=== PATIENT | female | born 1995 | race Caucasian/White ===

== ENCOUNTER 2023-12-26 13:55 | Emergency (ER) | payer OTHER, SELFPAY ==
[2023-12-26 13:57] VITALS: BP 120/75; PULSE 94; RESP 14; TEMP 36.9; O2SAT 95; BMI 27.4
--- NOTE | 2023-12-26 13:57 | ED_ITS ---
HPI - General Adult General Chief complaint: Dizziness Stated complaint: dizziness, headaches Time Seen by Provider: 12/26/23 15:29 Source: patient Mode of arrival: ambulatory Limitations: no limitations History of Present Illness ED Provider: Dr Cohen HPI narrative: Patient is feeling weak and dizzy for the past few weeks. She has a history of anemia and is new to the area and does not have a doctor. She denies fever and . Onset (ago): month(s) Related Data Allergies Allergy/AdvReac Type Severity Reaction Status Date / Time aspirin Allergy Swelling Verified 12/26/23 13:59 Review of Systems 2 Review of Systems: Yes all other systems are reviewed and are negative Neurologic: Denies Sensory deficit (Neuro) [facility] Social History Social History Smoked in Last 30 Days: No Use of substances other than those prescribed or required for medical reasons: No Advance Directives: No Advance Directives Information Provided: No Do you have a plan to hurt others: No Plan Physical Exam ED Vital Signs: Vital Signs - 24 hr 12/26/23 13:57 12/26/23 16:06 Temperature 98.4 F 98.3 F Pulse Rate 94 75 Respiratory Rate 14 18 Blood Pressure 120/75 103/56 L Pulse Oximetry 95 99 Oxygen Delivery Method Room Air BMI result Body Mass Index 27.4 Const General: healthy appearing Nutritional Appearance: average body habitus Orientation/consciousness: oriented to person and patient oriented x3 Limitations: no limitations HENMT Head: Yes normal to inspection Ears: external ears normal General nose exam: Normal external nose present Mouth: Normal oral and palatal mucosa present and oropharynx normal Throat: Yes posterior oropharynx normal Eyes General: appearance normal, both eyes and all related structures Neck Neck: Yes normal visual inspection Chest Chest palpation & inspection: normal inspection of the chest Resp Auscultation: clear to auscultation bilaterally Cardio Jugular venous distension: no JVD Rate: regular rate Rhythm: regular rhythm Heart sounds: S1 normal heart sound present and S2 normal heart sound present GI Inspection: Yes normal to inspection Palpation (GI): Soft to palpation, nontender and No hepatosplenomegaly present Auscultation: normal bowel sounds General: Yes no CVA tenderness Back/Spine/Pelvis Back: no CVA tenderness Skin General skin exam: no rashes or lesions noted Neuro General: oriented to person and patient oriented x3 Cranial nerves: Yes CN's II-XII intact bilaterally Motor exam (neuro): 5/5 motor strength present throughout Sensory Exam: No Sensory deficit (Neuro) Extrem General: Yes normal to inspection Psych Appearance: grossly normal Course Course Course Narrative: This is a rapid medical exam performed by Spencer Cancino NP: Additional HPI, ROS, PE not included below will be deferred to primary provider. Patient is a 28-year-old female with history of anemia presenting to the ED with 3 days of headache, dizziness/lightheadedness, and fatigue. Went to urgent care yesterday but was told there was nothing they could check there. Plan: labs, UA Reevaluation(s) Reevaluation #1: Patient is well appearing labs normal have discussed her results Time: 16:59 Medical Decision Making Differential Diagnosis Differential Diagnoses: The differential diagnosis associated with the presentation includes (anemia, electrolyte abnormality, UTI, covid) Admission/Observation Consideration of admission/observation: Escalation of care including admission/observation considered (upon arrival admission was considered) Lab Data 12/26/23 14:17 12/26/23 14:17 Labs: Lab Results 12/26/23 12/26/23 Range/Units 14:17 16:10 WBC 12.2 H (4.8-10.8) X10*3/uL RBC 4.26 (4.20-5.50) X10*6/uL Hgb 13.1 (12.0-16.0) g/dl Hct 38.4 (37.0-47.0) % MCV 90.1 (80.0-98.0) fL MCH 30.8 (27.0-33.0) pg MCHC 34.1 (31.0-35.0) g/dl RDW 12.8 (11.0-16.0) % Plt Count 244 (160-400) X10*3/uL MPV 10.4 (9.4-12.3) fL Immature Gran % (Auto) 0.4 (0.0-0.4) % Neut % (Auto) 69.7 (45-73) % Lymph % (Auto) 22.8 (20-40) % Addison % (Auto) 6.1 (2-11) % Eos % (Auto) 0.5 (0-4) % Baso % (Auto) 0.5 (0-2) % Lymph # (Auto) 2.8 (1.2-4.9) X10*3/uL Addison # (Auto) 0.8 (0.1-1.2) X10*3/uL Eos # (Auto) 0.1 (0.0-0.4) X10*3/uL Baso # (Auto) 0.1 (0.0-0.2) X10*3/uL Abs Immat Gran (auto) 0.05 H (0.00-0.03) X10*3/uL Absolute Neuts (auto) 8.5 H (2.0-8.3) x10*3/uL Absolute Nucleated RBC 0.000 (0.0-0.012) X10*3/uL Nucleated RBC % (auto) 0.0 (0.0-0.2) /100WBC Sodium 139 (135-145) mmol/L Potassium 3.7 (3.3-5.1) mmol/L Chloride 105 (96-108) mmol/L Carbon Dioxide 24 (22-29) mmol/L Anion Gap 14 (12-20) BUN 9 (9-16) mg/dL Creatinine 0.67 (0.5-1.4) mg/dL Estim Creat Clear Calc 108.5 Estimated GFR > 60 Random Glucose 127 H (60-115) mg/dL Calcium 9.1 (8.4-10.2) mg/dL Total Bilirubin 0.2 (0.0-1.0) mg/dL AST 16 (5-31) U/L ALT 14 (0-31) U/L Alkaline Phosphatase 89 (39-117) U/L Total Protein 7.7 (6.5-8.0) g/dL Albumin 4.4 (3.5-5.0) g/dL Beta HCG, Quant < 2 mIU/mL Urine Color Yellow Urine Appearance Clear Urine pH 6.5 (5.0-9.0) Ur Specific [place] 1.020 (1.005-1.025) Urine Protein Negative (Neg-Trace) mg/dL Urine Glucose (UA) Negative (Negative) mg/dL Urine Ketones Negative (Negative) mg/dL Urine Blood Negative (Negative) Urine Nitrite Negative (Negative) Ur Leukocyte Esterase Trace H (Negative) Urine RBC 0-2 (0-2) /HPF Urine WBC 0-5 (0-5) /HPF Ur Squamous Epith Cells 3-5 (0-2) /HPF Urine Bacteria Trace (None Seen) Hyaline Casts 0-2 (0-2) /LPF Influenza Type A (PCR) NEGATIVE (Negative) Influenza Type B (PCR) NEGATIVE (Negative) RSV RNA Qual (PCR) NEGATIVE (Negative) SARS-CoV-2 RNA (RT-PCR) NEGATIVE (Negative) Prescription Management I considered prescription management with: Antibiotic (no evidence of UTI so will not start abx) Discharge Plan Discharge Clinical Impression: Weakness Patient Disposition: Home, Self-Care Instructions: Weakness (ED) Print Language: [place]
[2023-12-26 14:21] LABS: MANUAL DIFF FLAG NO
[2023-12-26 14:22] LABS: Basophils Absolute Auto 0.1 X10*3/uL (0.0-0.2); Basophils Percent Auto 0.5 % (0-2); Eosinophils Absolute Auto 0.1 X10*3/uL (0.0-0.4); Eosinophils Percent Auto 0.5 % (0-4); Hematocrit 38.4 % (37.0-47.0); Hemoglobin 13.1 g/dl (12.0-16.0); Imm Gran Abs Auto 0.05 X10*3/uL (0.00-0.03); Imm Gran Pct Auto 0.4 % (0.0-0.4); Lymphocytes Absolute Auto 2.8 X10*3/uL (1.2-4.9); Lymphocytes Percent Auto 22.8 % (20-40); Mean Corpuscular HGB Conc 34.1 g/dl (31.0-35.0); Mean Corpuscular Hemoglobin 30.8 pg (27.0-33.0); Mean Corpuscular Volume 90.1 fL (80.0-98.0); Mean Platelet Volume 10.4 fL (9.4-12.3); Monocytes Absolute Auto 0.8 X10*3/uL (0.1-1.2); Monocytes Percent Auto 6.1 % (2-11); Neutrophils Absolute Auto 8.5 x10*3/uL (2.0-8.3); Neutrophils Percent Auto 69.7 % (45-73); Platelet Count 244 X10*3/uL (160-400); Red Blood Count 4.26 X10*6/uL (4.20-5.50); Red Cell Distribution Width 12.8 % (11.0-16.0); White Blood Count 12.2 X10*3/uL (4.8-10.8)
[2023-12-26 14:46] LABS: Alanine Aminotransferase 14 U/L (0-31); Albumin Level 4.4 g/dL (3.5-5.0); Alkaline Phosphatase 89 U/L (39-117); Anion Gap 14 (12-20); Aspartate Amino Transferase 16 U/L (5-31); Bilirubin Total 0.2 mg/dL (0.0-1.0); Blood Urea Nitrogen 9 mg/dL (9-16); Calcium 9.1 mg/dL (8.4-10.2); Carbon Dioxide 24 mmol/L (22-29); Chloride 105 mmol/L (96-108); Creatinine Clr Calc Pharmacy 108.5; Estimated Glomerular Filt Rate > 60; Glucose Random 127 mg/dL (60-115); Potassium 3.7 mmol/L (3.3-5.1); Sodium 139 mmol/L (135-145); Total Protein 7.7 g/dL (6.5-8.0)
[2023-12-26 14:52] LABS: HCG Quantitative < 2 mIU/mL
[2023-12-26 15:00] LABS: Influenza A PCR NEGATIVE (Negative); Influenza B PCR NEGATIVE (Negative); Resp Syncy Virus RNA Qual PCR NEGATIVE (Negative); SARS COV2 PCR INHOUSE NEGATIVE (Negative)
[2023-12-26 16:06] VITALS: BP 103/56; PULSE 75; RESP 18; TEMP 36.8; O2SAT 99
[2023-12-26 16:31] LABS: Appearance Urine Clear; Color Urine Yellow; Glucose Urine UA Negative (Negative); Leukocyte Esterase Urine Trace (Negative); Nitrite Urine Negative (Negative); PH 6.5 (5.0-9.0); UMIC TRIGGER UACC YES; Urine Blood Negative (Negative); Urine Ketones Negative (Negative); Urine Protein Negative (Neg-Trace)
[2023-12-26 16:44] LABS: Bacteria Urine Trace (None Seen); Hyaline Casts Urine 0-2 /LPF (0-2); RBC Urine 0-2 /HPF (0-2); WBC Urine 0-5 /HPF (0-5)
[2023-12-26 17:19] VITALS: BP 103/56; PULSE 75; RESP 18; TEMP 36.8; O2SAT 99
== END 2023-12-26 17:21 | disposition home or self-care (01) ==
PROVIDERS: Registered Nurse Emergency; Emergency Provider Emergency Medicine
DX: R42 Dizziness and giddiness (principal); R53.1 Weakness; Z03.818 Encounter for observation for suspected exposure to other biological agents ruled out; Z79.899 Other long term (current) drug therapy
CPT/HCPCS: 0241U; 80053; 81001; 84702; 85025; 99283; 99284

== ENCOUNTER 2025-02-26 10:00 | Outpatient (AMB) | payer OTHER, SELFPAY ==
--- NOTE | 2025-02-26 10:09 | A.OFFPC_ITS ---
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 Intake Note: New patient to establish care. 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 HPI Details New Patient? ?? Prior PCP:? CT Dr Last office visit/CPE:? > 1 yr Acute issue(s):? ?? PMHx:?Headaches/Migraines. Anemia SurgHx:? BBL . C-sect x 3. FHx:? Mom: DM, HTN. Dad: Unknown. Aunt: Breast CA. mGM: DM, HTN, HLD, Thyroid SocHx:? Nonsmoker. EtOH 1 drink 1-2 x a month. No drugs PFSH Medical History (Updated 02/26/25 @ 10:27 by Bladimir Kaufman) Bipolar 1 disorder Headache Eczema Surgical History (Updated 02/26/25 @ 10:18 by Jose Villafana MA) H/O plastic surgery Previous section Family History (Updated 02/26/25 @ 10:21 by Jose Villafana MA) Mother Diabetes Maternal Grandmother Diabetes Asthma High cholesterol Thyroid disorder Paternal Grandfather Diabetes Thyroid disorder Paternal Grandmother Diabetes High cholesterol Sister Asthma Brother Asthma Social History (Updated 02/26/25 @ 10:10 by Jose Villafana MA) Housing: Apartment Alcohol intake: current Alcohol intake frequency: a few times a month Patient Tobacco Use Status: Never used Tobacco e-Cigarette/Vaping Use: Never Used Second Hand Smoke Exposure: No Current occupational status: employed 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 1. Little interest or pleasure in doing things: not at all 2. Feeling down, depressed, or hopeless: not at all 3. Trouble falling or staying asleep, or sleeping too much: not at all 4. Feeling tired or having little energy: several days 5. Poor appetite or overeating: not at all 6. Feeling bad about yourself - or that you are a failure or have let yourself or your family down: not at all 7. Trouble concentrating on things, such as reading the newspaper or watching television: not at all 8. Moving or speaking so slowly that other people could have noticed. Or the opposite - being so fidgety or restless that you have been moving around a lot more than usual: not at all 9. Thoughts that you would be better off or of hurting yourself in some way: not at all Total score: 1 Depression Screening Interpretation: Negative Depression Screening Done: Yes 39526 - PHQ-9 Billing: Yes Source: Developed by Drs. Drake Cade, Ale Lindo, Felix Carrasco and colleagues, with an educational migdalia from [employer]. Thrive Questionnaire Date Thrive assessed: 02/26/25 I am a: Patient What is your living situation today?: I have a steady place to live Within the past 12 months, did the food you bought not last and you didn't have the money to get more?: Never true Within the past 12 months, did you worry whether your food would run out before you got money to buy more?: Never true Do you have trouble paying for medicines?: No Do you have trouble getting transportation to medical appointments?: No Do you have trouble paying your heating and electricity bill?: No Do you have trouble taking care of your child, family member or friend?: No Do you have trouble with day-to-day activities such as bathing, preparing meals, shopping, managing finances, etc.?: No Are you currently unemployed and looking for a job?: Yes Are you interested in more education?: No Please select the resources that you would like help with: Housing/Intermediate Currently or been in a relationship where the following occur: No concerns reported THRIVE Score: 0 AUDIT C Alcohol Use Questionnaire (AUDIT-C) 1. How often do you have a drink containing alcohol?: 2-4 times a month 2. How many drinks containing alcohol do you have on a typical day when you are drinking?: 1 or 2 3. How often do you have six or more drinks on one occasion?: Never Total Score: 2 TRESSA-7 AMB Questionnaire TRESSA-7 Date TRESSA - 7 assessed: 02/26/25 Feeling nervous, anxious, or on edge: 0 = Not at all Not being able to stop or control worryin = Not at all Worrying too much about different things: 0 = Not at all Trouble relaxin = Not at all Being so restless that it is hard to sit still: 0 = Not at all Becoming easily annoyed or irritable: 0 = Not at all Feeling afraid as if something awful might happen: 0 = Not at all Total TRESSA-7 score (0-4 normal; 5-9 mild; 10-14 moderate; 15-21 severe): 0 Source: Developed by Drs. Drake Cade, Ale Lindo, Felix Carrasco and colleagues, with an educational migdalia from [employer]. TRESSA-7 Assessment Billing TRESSA-7 Assessment Tool: TRESSA-7 Assessment 12241 Review of Systems Const Denies chills, Denies fatigue, Denies fever(s), Denies headache(s) and Denies weakness ENT Denies dizziness and Denies headache(s) Card Denies chest pain, Denies lightheadedness, Denies dyspnea and Denies other (Palpitations) Resp Denies cough, Denies dyspnea, Denies wheezing and Denies other ( shortness of breath) Musc Denies numbness and Denies tingling Neuro Denies dizziness, Denies headache(s), Denies numbness, Denies tingling, Denies paresthesias and Denies weakness Psych Denies anxiety and Denies depression Endo Denies fatigue Aller/Immun Denies wheezing Physical exam (Primary Care) Tobacco/Smoking Status: Tobacco use Status Tobacco use date assessed 02/26/25 02/26/25 10:13 Patient Tobacco Use Status Never used Tobacco 02/26/25 10:13 e-Cigarette/Vaping Use Never Used 02/26/25 10:13 PHQ-9: PHQ-9 Score PHQ-9: Total score 1 02/26/25 10:13 Depression Screening Interpretation: Negative Thrive Assessment: Date of Thrive Assessment Date Thrive assessed 02/26/25 02/26/25 10:13 Currently or been in a relationship where the following occur: No concerns reported Const General: no acute distress and well developed Nutritional Appearance: well nourished Orientation/consciousness: patient oriented x3 HENMT Head: Yes normocephalic and Yes atraumatic Eyes General: appearance normal, both eyes and all related structures Pupils: Equal, round and reactive pupils present EOM: EOMs intact bilaterally Resp Effort & Inspection: normal respiratory effort Auscultation: clear to auscultation bilaterally Cardio Rate: regular rate Rhythm: regular rhythm Heart sounds: S1 normal heart sound present, S2 normal heart sound present, no gallops, no murmurs and no rubs Neuro General: patient oriented x3 and gait normal Cranial nerves: Yes Equal, round and reactive pupils present Psych Affect: normal affect Coding Level of Care Code New Pt Level 3 (58250) Diagnoses Headache R51.9 Rhinitis J31.0 Seasonal allergies J30.2 Laboratory exam ordered as part of routine general medical examination Z00.00 Additional Codes TRESSA-7 Assessment Billing - TRESSA-7 Assessment Tool: TRESSA-7 Assessment 04919 ([id number]) PHQ-9 - 97252 - PHQ-9 Billing: Yes ([id number]) Assessment & Plan Assessment & Plan (1) Headache: Code(s): R51.9 - Headache, unspecified Category: Medical Plan: History of migraine headaches. She says she was followed by another provider for this and was given medication. She is not sure medication she was taking. Getting headaches about twice per month Will give her a script to try sumatriptan when she 1st notices the onset of a migraine headache. Also advised good hydration plenty of sleep Relaxation (2) Rhinitis: Code(s): J31.0 - Chronic rhinitis Category: Medical Plan: Mild nasal discharge and nasal mucosal inflammation. No pus Sick contacts Likely seasonal allergies See below (3) Seasonal allergies: Code(s): J30.2 - Other seasonal allergic rhinitis Category: Medical Plan: Using some Mucinex She can try a daytime antihistamine such as Zyrtec (4) Laboratory exam ordered as part of routine general medical examination: Code(s): Z00.00 - Encounter for general adult medical examination without abnormal findings Category: Medical Plan: Labs are ordered Orders: Orders Comprehensive Wayne. Panel Fast Today Z00.00 - Encounter for general adult medical examination without abnormal findings Complete Blood Count Auto Diff Today Z00.00 - Encounter for general adult medical examination without abnormal findings Lipid Panel Today Z00.00 - Encounter for general adult medical examination without abnormal findings UA CC w/rflx Micro + Cult Today Z00.00 - Encounter for general adult medical examination without abnormal findings Syphilis Screen Today Z11.3 - Encounter for screening for infections with a predominantly sexual mode of transmission Microalbumin, Random (w Creat) Today I10 - Essential (primary) hypertension TSH reflex Free T4 Today Z00.00 - Encounter for general adult medical examination without abnormal findings IRON PROFILE Today Z00.00 - Encounter for general adult medical examination without abnormal findings CT NG by PCR Urine Today Z11.3 - Encounter for screening for infections with a predominantly sexual mode of transmission Hepatitis B,C Profile Today Z11.3 - Encounter for screening for infections with a predominantly sexual mode of transmission HIV Ab/Ag Today Z11.3 - Encounter for screening for infections with a predominantly sexual mode of transmission Medications: New sumatriptan succinate take 1 tab at onset of headache; if no relief may repeat 1 tab after at least 2 hrs; max = 4 tabs/24 hr PO 12 tabs 3RF 30 days
[2025-02-26 10:14] VITALS: BP 98/66; PULSE 92; RESP 12; TEMP 36.3; O2SAT 98; BMI 27.9
--- OUTSIDE RECORDS SUMMARY | 2025-02-26 11:11 | XMS_ITS | Clinical Summary ---
Author Organization [facility] Address [address] [place] [address] Phone Care Team Providers Care Straw Hat Presser Name Role Phone Kinjal Johnson Primary Care Provider [phone] Allergies No known active allergies Immunizations Name Administration Dates Next Due Pfizer SARS-CoV-2 COVID-19, mRNA, LNP-S, preservative free 03/06/2021,02/13/2021 Medical History Medical History Date Comments [place] [place] [facility] [place] (chronic obstructive [place] disease) [place] [place] [facility] [place] thromboembolism[place] [place] [facility] [place]28) Hypertension Asthma Social History Tobacco Use Types Packs/Day Years Used Date Smoking Tobacco: Former Cigarettes Smokeless Tobacco: Never Tobacco Cessation:Counseling Given: Not Answered Alcohol Use Standard Drinks/Week Comments Not Currently 0 (1 standard drink = 0.6 oz pur e alcohol) Comments Unknown Sex and Gender Information Value Date Recorded Sex Assigned at Female 08/31/2024 7:39 AM EDT Legal Sex Female 4:57 PM EST Gender Identity Female 08/31/2024 7:39 AM EDT Sexual Orientation Straight 08/31/2024 7: 39 AM EDT Obstetrics History Last Filed Vital Signs Vital Sign Reading Time Taken Comments Blood Pressure 102/57 08/31/2024 7:04 AM EDT Pulse 98 08/31/2024 7:04 AM EDT Temperature 36.9 C (98.4 F) 08/31/2024 7:04 AM EDT Respiratory Rate 16 08/31/2024 7:04 AM EDT Oxygen Saturation 97% 08/31/2024 7:04 AM EDT Inhaled Oxygen Concentration - - Weight 69.4 kg (153 lb) 08/31/2024 1:25 AM EDT Height 152.4 cm (5') 08/31/2024 1:25 AM EDT Body Mass Index 29.88 08/31/2024 1:25 AM EDT Plan of Treatment Health Maintenance Due Date Last Done Comments DTaP,Tdap,and Td Vaccines (1 - Tdap) 2014 Hepatitis B Vaccines (1 of 3 - 19+ 3-dose series) 2014 Cervical Cancer Screening: P ap Smear 2016 Social Influencers of Health Screening 05/02/2022 Depression Screening 06/03/2024 COVID-19 Vaccine (3 - 2024-2 6 season) 2025 03/06/2021, 02/13/2021 Influenza Vaccine (#1) 2025 Cholesterol Screening (Lipid Panel) 08/08/2026 08/08/2021, 08/08/2021 HIV Screening Completed 11/09/2016 Hepatitis C Screening Completed 08/08/2021 HIB Vaccines Aged Out No longer eligi ble based on patient's age to complete this topic HPV Vaccines Aged Out No longer eligi ble based on patient's age to complete this topic Hepatitis A Vaccines Aged Out No long er eligible based on patient's age to complete this topic IPV Vaccines Aged Out No longer eligi ble based on patient's age to complete this topic MMR Vaccines Aged Out No longer eligi ble based on patient's age to complete this topic Meningococcal ACWY Vaccine Aged Out N o longer eligible based on patient's age to complete this topic Meningococcal B Vaccine Aged Out No l onger eligible based on patient's age to complete this topic Pneumococcal Vaccine: Pediatrics (0 to 5 Years) and At-Risk Patients (6 to 49 Years) Aged Out No longer eligible b ased on patient's age to complete this topic RSV Immunization Patients Under 20 months Aged Out No longer eligible b ased on patient's age to complete this topic Varicella Vaccines Aged Out No longer eligible based on patient's age to complete this topic Insurance * Guarantor: Hiren Hughes Account Type Relation to Patient Date of Phone Billing Address Personal/Family Self 1995 [address] [place] [address] [facility] Care Teams Straw Hat Presser Relationship Specialty Start Date End Date Kinjal Johnson PA [facility] [place] [id number] PCP - General Internal Medicine 06/19/18
== END 2025-02-26 10:33 | disposition home or self-care (01) ==
LOC: HO.HMCFM 10:01
PROVIDERS: PCP Family Medicine; Visit Provider Family Medicine
DX: R51.9 Headache, unspecified (principal); J31.0 Chronic rhinitis; J30.2 Other seasonal allergic rhinitis; Z00.00 Encounter for general adult medical examination without abnormal findings

== ENCOUNTER → 2025-02-26 10:00 | Outpatient (BNVA) | payer OTHER, SELFPAY | PROVIDERS: PCP Family Medicine; Visit Provider Family Medicine | DX: Z00.00 Encounter for general adult medical examination without abnormal findings (principal); J31.0 Chronic rhinitis; R51.9 Headache, unspecified | CPT/HCPCS: 96127; 99202 ==

== ENCOUNTER 2025-03-10 09:12 | Outpatient (REF) | payer OTHER, SELFPAY ==
[2025-03-10 13:29] LABS: MANUAL DIFF FLAG NO
[2025-03-10 13:38] LABS: Hematocrit 38.5 % (37.0-47.0); Hemoglobin 13.0 g/dl (12.0-16.0); Imm Gran Abs Auto 0.03 X10*3/uL (0.00-0.03); Imm Gran Pct Auto 0.3 % (0.0-0.4); Lymphocytes Absolute Auto 1.7 X10*3/uL (1.2-4.9); Mean Corpuscular HGB Conc 33.8 g/dl (31.0-35.0); Mean Corpuscular Hemoglobin 29.7 pg (27.0-33.0); Mean Corpuscular Volume 88.1 fL (80.0-98.0); NRBC Abs Auto 0.000 X10*3/uL (0.0-0.012); NRBC Pct Auto 0.0 /100WBC (0.0-0.2); Platelet Count 281 X10*3/uL (160-400); Red Blood Count 4.37 X10*6/uL (4.20-5.50); White Blood Count 8.6 X10*3/uL (4.8-10.8)
[2025-03-10 13:44] LABS: Appearance Urine Hazy; Glucose Urine UA Negative (Negative); PH 6.0 (5.0-9.0); Specific Gravity - Urine 1.020 (1.005-1.025)
[2025-03-10 14:19] LABS: HBS Num1 4.49 mIU/mL (0-7.99); HBc Num1 0.11 S/CO (0.00-0.79); HBsAGNum1 0.41 S/CO (0.00-0.99); HIV Num 1 0.06 S/CO (0.00-0.99); Hepatitis B Surface Antigen Negative (Negative); ~HepC Num1 0.10 S/CO (0.00-0.79); ~Hepatitis B Surface Antibody NONREACTIVE (Nonreactive); ~Hepatitis C Antibody Nonreactive (Nonreactive)
[2025-03-10 14:21] LABS: Syphilis Screen Nonreactive (Nonreactive)
[2025-03-10 14:25] LABS: Alanine Aminotransferase 14 U/L (0-31); Albumin Level 4.5 g/dL (3.5-5.0); Alkaline Phosphatase 81 U/L (39-117); Anion Gap 9 (12-20); Aspartate Amino Transferase 25 U/L (5-31); Blood Urea Nitrogen 13 mg/dL (9-16); Calcium 9.3 mg/dL (8.4-10.2); Carbon Dioxide 28 mmol/L (22-29); Chloride 106 mmol/L (96-108); Cholesterol 129 mg/dL (<200); Estimated Glomerular Filt Rate > 60; HDL Cholesterol 32 mg/dL (>40); Iron 39 mcg/dL (30-160); Percent Iron Saturation 14 % (15-50); Potassium 4.3 mmol/L (3.3-5.1); Sodium 139 mmol/L (135-145); Total Iron Binding Capacity 278 mcg/dL (228-428); Total Protein 7.8 g/dL (6.5-8.0); Triglycerides 69 mg/dL (<150); Unsaturated Iron Binding 239 ug/dL
[2025-03-10 14:39] LABS: Microalbum/Creatinine Ratio Ur 6.2 ug/mg cr (<30)
[2025-03-10 15:14] LABS: CT PCR Urine DETECTED (Not Detect.); NG PCR Urine NOT DETECTED (Not Detect.)
== END 2025-03-10 09:13 | disposition home or self-care (01) ==
LOC: HO.HMGCLDS 09:12
PROVIDERS: PCP Family Medicine; Visit Provider Family Medicine
DX: Z00.00 Encounter for general adult medical examination without abnormal findings (principal); Z11.3 Encounter for screening for infections with a predominantly sexual mode of transmission; Z11.59 Encounter for screening for other viral diseases; Z11.8 Encounter for screening for other infectious and parasitic diseases; Z11.4 Encounter for screening for human immunodeficiency virus [HIV]; I10 Essential (primary) hypertension
CPT/HCPCS: 80053; 80061; 81003; 82043; 82570; 83540; 84443; 85025; 86704; 86706; 86780; 86803; 87340; 87389; 87491; 87591

== ENCOUNTER 2025-03-17 09:57 | Outpatient (AMB) | payer OTHER, SELFPAY ==
--- NOTE | 2025-03-17 10:01 | A.OFFPC_ITS ---
Vital Signs 03/17/25 10:05 Height 5 ft 1 in Weight 147 lb 2 oz BMI 27.8 BP 94/62 Blood Pressure Location Lt brachial Position Sitting Respiration 12 Pulse 91 Pulse Source Pulse Oximeter Temp 98.6 F Temp Source Oral Pulse Oximetry (%) 98 Oxygen Delivery Method Room Air Intake Visit Reasons: getting a lot bruises Intake Note: Bruising legs, calves, ankles. Negative Restorer Required: No Allergies aspirin Allergy (Verified 02/26/25 10:11) Swelling Medication List - Last Reconciled 03/17/25 by Carole Rivera PA-C sumatriptan succinate take 1 tab at onset of headache; if no relief may repeat 1 tab after at least 2 hrs; max = 4 tabs/24 hr PO 30 days Tobacco use date assessed: 02/26/25 Dental Screening Dental Screen Date: 02/26/25 HPI getting a lot bruises HPI Details Patient is a 29-year-old female who presents today for an acute problem visit. She normally follows with Dr. Price. Recently had labs as part of a physical/new patient visit. She complains today of easy bruising x4 weeks. She says that this is very abnormal for her. She is noticing bruises on her legs. She does not report any associated injury with this however does ride motorcycles. Initially thought related to that but states that she has noticed bruises without riding her bike. No blood in her urine or stool. No weakness or fatigue. No swollen lymph nodes, fevers or chills. No bruising around the belt line, bra line. No rashes, bloody noses. She does report easy bleeding of her gums. No change in her menses. No new supplements. She does have a history of iron-deficiency anemia but her recent CBC was overall reassuring. Her iron was low end normal. She is not on any supplement. As part of her visit with her PCP she did have a UA which was negative for any blood. Her urine chlamydia test did come back positive. She is currently asymptomatic. She is ?currently single because her partner went to skilled nursing?. She will tell him about the chlamydia test. She suspects that he already knows. She notices on her portal last week. She follows with [facility]. She has not contacted them about the test results. [facility] Medical History (Updated 03/17/25 @ 10:32 by Carole Rivera PA-C) Bipolar 1 disorder Headache Eczema Surgical History (Updated 02/26/25 @ 10:18 by Jose Villafana MA) H/O plastic surgery Previous section Family History (Updated 02/26/25 @ 10:21 by Jose Villafana MA) Mother Diabetes Maternal Grandmother Diabetes Asthma High cholesterol Thyroid disorder Paternal Grandfather Diabetes Thyroid disorder Paternal Grandmother Diabetes High cholesterol Sister Asthma Brother Asthma Social History (Updated 02/26/25 @ 10:10 by Jose Villafana MA) Housing: Apartment Alcohol intake: current Alcohol intake frequency: a few times a month Patient Tobacco Use Status: Never used Tobacco e-Cigarette/Vaping Use: Never Used Second Hand Smoke Exposure: No Current occupational status: employed 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 Current occupational exposures/hazards: No Cognitive needs: No Hearing needs: No Vision needs: Yes (wear glasses) Questionnaire Thrive Questionnaire Date Thrive assessed: 02/26/25 I am a: Patient What is your living situation today?: I have a steady place to live Within the past 12 months, did the food you bought not last and you didn't have the money to get more?: Never true Within the past 12 months, did you worry whether your food would run out before you got money to buy more?: Never true Do you have trouble paying for medicines?: No Do you have trouble getting transportation to medical appointments?: No Do you have trouble paying your heating and electricity bill?: No Do you have trouble taking care of your child, family member or friend?: No Do you have trouble with day-to-day activities such as bathing, preparing meals, shopping, managing finances, etc.?: No Are you currently unemployed and looking for a job?: Yes Are you interested in more education?: No Please select the resources that you would like help with: Housing/Intermediate Currently or been in a relationship where the following occur: No concerns reported THRIVE Score: 0 TRESSA-7 AMB Questionnaire TRESSA-7 Date TRESSA - 7 assessed: 02/26/25 Source: Developed by Drs. Drake Cade, Ale Lindo, Felix Carrasco and colleagues, with an educational migdalia from [employer]. Physical exam (Primary Care) Vital Signs: Last Vital Signs Temp 98.6 F 10/15/25 10:05 Pulse 91 03/17/25 10:05 Resp 12 03/17/25 10:05 BP 94/62 03/17/25 10:05 Pulse Ox 98 03/17/25 10:05 Oxygen Delivery Method Room Air 03/17/25 10:05 BMI result Body Mass Index 27.8 Tobacco/Smoking Status: Tobacco use Status Tobacco use date assessed 02/26/25 03/17/25 10:03 Patient Tobacco Use Status Never used Tobacco 03/17/25 10:03 e-Cigarette/Vaping Use Never Used 03/17/25 10:03 Thrive Assessment: Date of Thrive Assessment Date Thrive assessed 02/26/25 03/17/25 10:03 Currently or been in a relationship where the following occur: No concerns reported Const Orientation/consciousness: patient oriented x3 HENMT Ears: hearing grossly normal bilaterally Neck Thyroid: Thyroid normal Lymphatic: no lymphadenopathy noted Resp Auscultation: clear to auscultation bilaterally Cardio Rate: regular rate Rhythm: regular rhythm Heart sounds: S1 normal heart sound present and S2 normal heart sound present GI Inspection: Yes normal to inspection Palpation (GI): Soft to palpation and Other GI palpation findings present (no ntender, no cva tenderness) Auscultation: normoactive bowel sounds Rectal Exam - Female: deferred Skin Other: She does have a few areas of ecchymosis noted on her bilateral lower legs. They do appear to be fading. General skin exam: no rashes or lesions noted Neuro General: patient oriented x3, gait normal and no focal motor deficits Extrem General: Yes normal to inspection, Yes full ROM and Yes capillary refill normal Coding Level of Care Code Est Pt Level 4 (34766) Complex EM visit Add On G2211 Diagnoses Easy bruising R23.3 Chlamydia A74.9 Assessment & Plan Assessment & Plan (1) Easy bruising: Code(s): R23.3 - Spontaneous ecchymoses Category: Medical Plan: I discussed warning signs with her. There was no significant abnormality on physical exam. We will check labs and have her follow up with Hematology although I did discuss with her warning signs she would need to let me know if anything changes such as a petechial rash, swollen lymph node, a change in bleeding with her menses, bruising or rashes around her bra line etc.. (2) Chlamydia: Code(s): A74.9 - Chlamydial infection, unspecified Category: Medical Plan: Reviewed labs with patient. Doxycycline ordered today. Advised to contact Gynecology to be retested did check for eradication. Advised no intercourse until she has a eradication. Orders: Orders Liver Panel Today R23.3 - Spontaneous ecchymoses Prothrombin Time INR Today R23.3 - Spontaneous ecchymoses Complete Blood Count Auto Diff Today R23.3 - Spontaneous ecchymoses Referrals Hematology & Oncology Referral R23.3 - Spontaneous ecchymoses Medications: New doxycycline hyclate 100 mg PO BID 14 tabs 0RF
[2025-03-17 10:05] VITALS: BP 94/62; PULSE 91; RESP 12; TEMP 37; O2SAT 98; BMI 27.8
--- OUTSIDE RECORDS SUMMARY | 2025-03-17 11:45 | XMS_ITS | Clinical Summary ---
Author Organization [facility] Address [address] [place] [address] Phone Care Team Providers Care [employer] Name Role Phone Kinjal Johnson Primary Care Provider [phone] Allergies No known active allergies Immunizations Immunization Administration Dates Next Due Pfizer SARS-CoV-2 COVID-19, mRNA, LNP-S, preservative free 03/06/2021,02/13/2021 Medical History Medical History Date Comments Cancer ([facility] V24, [facility] V28) COPD (chronic obstructive pulmonary disease) ([facility] V24, [facility] V28) PE (pulmonary thromboembolism) ([facility] V24, [facility] V28) Hypertension Asthma Social History Tobacco [...] 2016 Social Influencers of Health Screening 05/02/2022 HPV Vaccines (1 - 3-dose SCD M series) 2022 Depression Screening 06/03/2024 COVID-19 Vaccine (3 - 2024-2 6 season) 2025 03/06/2021, 02/13/2021 Influenza Vaccine (#1) 2025 Cholesterol Screening (Lipid Panel) 08/08/2026 08/08/2021, 08/08/2021 RSV Immunization Adult Patients (1 - 1-dose 75+ series) 2070 HIV Screening Completed 11/09/2016 Hepatitis C Screening [...] Phone Billing Address Personal/Family Self 1995 [address] [place] [address] [employer] Care Teams [employer] Hand Relationship Specialty Start Date End Date Kinjal Johnson PA [address] [place] [address] PCP - General Internal Medicine 06/19/18
== END 2025-03-17 14:11 | disposition home or self-care (01) ==
LOC: HO.HMCFM 09:58
PROVIDERS: PCP Family Medicine; Visit Provider Physician Assistant
DX: R23.3 Spontaneous ecchymoses (principal); A74.9 Chlamydial infection, unspecified

== ENCOUNTER → 2025-03-17 09:57 | Outpatient (BNVA) | payer OTHER, SELFPAY | PROVIDERS: PCP Family Medicine; Visit Provider Physician Assistant | DX: R23.3 Spontaneous ecchymoses (principal); A74.9 Chlamydial infection, unspecified | CPT/HCPCS: 99212 ==

== ENCOUNTER → 2025-05-13 14:03 | Outpatient (BNV) | payer OTHER, SELFPAY | PROVIDERS: PCP Family Medicine; Referring Provider Family Medicine; Visit Provider Internal Medicine Medical Oncology | DX: R23.3 Spontaneous ecchymoses (principal) | CPT/HCPCS: 99204 ==

== ENCOUNTER 2025-05-20 15:14 | Emergency (ER) | payer OTHER, SELFPAY ==
[2025-05-20 15:41] VITALS: BP 130/60; PULSE 86; RESP 16; TEMP 36.6; O2SAT 99; BMI 27.7
--- NOTE | 2025-05-20 15:42 | ED.ABDPAIN ---
HPI - Abdominal Pain General Chief Complaint: Abdominal Pain Stated Complaint: abd pain Time Seen by Provider: 05/20/25 21:29 Source: patient and RN notes reviewed Mode of arrival: ambulatory Limitations: no limitations History of Present Illness ED Provider: Ainsley HPI narrative: 29-year-old female presents for evaluation of ?bumps in my groin The patient reports that she has had painful lumps to both sides of records that have been growing over last few months. She states ?they are on the inside. ? The patient reports that she had a [place] in August of this year Denies fevers or chills Denies any vaginal bleeding or discharge. She was treated for chlamydia in March Has any burning with urination. Denies any rashes, Related Data Previous Rx's ?Medication ?Instructions ?Recorded sumatriptan succinate 50 mg tablet See Rx Instructions PO .COMPLEX 30 02/26/25 days #12 tabs Allergies Allergy/AdvReac Type Severity Reaction Status Date / Time aspirin Allergy Swelling Verified 05/20/25 15:43 Review of Systems Constitutional: Denies body ache(s), Denies chills, Denies fever(s) and Denies headache(s) Eyes: Denies blurry vision Denies vertigo, Denies dizziness and Denies headache(s) Cardiovascular: Denies chest pain and Denies dyspnea on exertion Respiratory: Denies cough and Denies dyspnea on exertion Gastrointestinal: Denies abdominal pain and Denies nausea Comments: Bilateral groin Skin/Breast: Denies rash Denies vertigo, Denies dizziness and Denies headache(s) [facility] Past Medical History Medical History (Updated 05/20/25 @ 21:56 by Braden Schmitz) Bipolar 1 disorder Headache Eczema Surgical History (Updated 05/13/25 @ 14:34 by Kymberly Valladares MD) H/O plastic surgery Previous section Family History Family History Mother Diabetes Maternal Grandmother Diabetes Asthma High cholesterol Thyroid disorder Paternal Grandfather Diabetes Thyroid disorder Paternal Grandmother Diabetes High cholesterol Sister Asthma Brother Asthma Social History Social History Household Members: Children Housing: Apartment Alcohol intake: current Alcohol intake frequency: a few times a month Patient Tobacco Use Status: Never used Tobacco e-Cigarette/Vaping Use: Never Used Second Hand Smoke Exposure: No Advance Directives: No Advance Directives Information Provided: Yes service: No Current occupational status: employed 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 Current occupational exposures/hazards: No Cognitive needs: No Hearing needs: No Vision needs: Yes (wear glasses) Physical Exam ED Vital Signs: Vital Signs - 24 hr 05/20/25 15:41 05/20/25 22:04 Temperature 97.8 F 97.8 F Pulse Rate 86 86 Respiratory Rate 16 16 Blood Pressure 130/60 130/60 Pulse Oximetry 99 99 Oxygen Delivery Method Room Air Room Air BMI result Body Mass Index 27.7 Const General: healthy appearing, comfortable, no acute distress, alert and awake Nutritional Appearance: well nourished Orientation/consciousness: patient oriented x3 HENMT Head: Yes normocephalic and Yes atraumatic Eyes Eyelids: Yes eyelids normal Conjunctivae: conjunctivae normal Sclerae: sclerae normal Corneas: corneas normal Pupils: Equal, round and reactive pupils present EOM: EOMs intact bilaterally Neck Neck: Yes full ROM Resp Effort & Inspection: normal respiratory effort, able to speak in complete sentences and not labored Cardio Rate: regular rate Rhythm: regular rhythm GI Inspection: No distended Palpation (GI): Soft to palpation, not firm, nontender, no guarding and not rigid Other: Exam performed with female RN, Libby Medley present External Female Exam: normal external appearance Skin Other: That has no erythema, edema to the groin bilaterally. There is some induration in the groin bilaterally below the panniculectomy scar. General skin exam: elasticity normal Neuro General: patient oriented x3 Cranial nerves: Yes Equal, round and reactive pupils present and Yes Bilaterally intact EOM present Cognition (Neuro): normal cognition Extrem Other: Moving all extremities well without any obvious deformities Course Course Course Narrative: This is an RME: Additional HPI, ROS, PE not included below will be deferred to primary provider. RME assessment and note performed by: Anali Meraz PA-C This is a [id number] who presents to the ER with a complaint of lower abdominal pain and inguinal lumps . Was seen in Mar and tested positive for chlamydia, treated with doxy which she completed. Plan: Labs, UA, further ER eval needed Reevaluation(s) Reevaluation #1: Patient left without completing treatment. Medical Decision Making Medical Decision Making MDM Narrative: 29-year-old female presents for evaluation of pain in her groin. This has been going on for several months but she reports that the symptoms are worsening and getting larger. There was no evidence of cellulitis or abscess in the area. The area she is talking about he is not consistent with lymphadenitis, she appears to have some induration that seems linear in nature. It seems most consistent with scar tissue from her recent panniculectomy. I discussed this with her and she has no local follow up so we will refer her to General surgery. She has no abdominal or pelvic pain. She has no risk factors for DVT. The patient will be discharged with symptomatic care. Vital signs, exam and labs are reassuring and she is discharged in stable condition Differential Diagnosis Differential Diagnoses: The differential diagnosis associated with the presentation includes Groin pain Abdominal pain Pelvic pain UTI PID less likely Lab Data MDM Lab Attestation statement: I reviewed the patient's lab results. No leukocytosis or anemia. Normal platelet count. No electrolyte abnormalities warranting dimension. 05/20/25 16:27 05/20/25 16:27 Labs: Lab Results 05/20/25 05/20/25 Range/Units 16:27 21:26 WBC 9.7 (4.8-10.8) X10*3/uL RBC 4.30 (4.20-5.50) X10*6/uL Hgb 12.6 (12.0-16.0) g/dl Hct 38.1 (37.0-47.0) % MCV 88.6 (80.0-98.0) fL MCH 29.3 (27.0-33.0) pg MCHC 33.1 (31.0-35.0) g/dl RDW 13.0 (11.0-16.0) % Plt Count 247 (160-400) X10*3/uL MPV 10.3 (9.4-12.3) fL Immature Gran % (Auto) 0.4 (0.0-0.4) % Neut % (Auto) 71.8 (45-73) % Lymph % (Auto) 19.2 L (20-40) % [place] % (Auto) 8.1 (2-11) % Eos % (Auto) 0.2 (0-4) % Baso % (Auto) 0.3 (0-2) % Lymph # (Auto) 1.9 (1.2-4.9) X10*3/uL [place] # (Auto) 0.8 (0.1-1.2) X10*3/uL Eos # (Auto) 0.0 (0.0-0.4) X10*3/uL Baso # (Auto) 0.0 (0.0-0.2) X10*3/uL Abs Immat Gran (auto) 0.04 H (0.00-0.03) X10*3/uL Absolute Neuts (auto) 6.9 (2.0-8.3) x10*3/uL Absolute Nucleated RBC 0.000 (0.0-0.012) X10*3/uL Nucleated RBC % (auto) 0.0 (0.0-0.2) /100WBC Sodium 138 (135-145) mmol/L Potassium 3.9 (3.3-5.1) mmol/L Chloride 106 (96-108) mmol/L Carbon Dioxide 26 (22-29) mmol/L Anion Gap 10 L (12-20) BUN 10 (9-16) mg/dL Creatinine 0.58 (0.5-1.4) mg/dL Estim Creat Clear Calc 124.9 Estimated GFR > 60 Random Glucose 79 (60-115) mg/dL Calcium 9.2 (8.4-10.2) mg/dL Magnesium 1.9 (1.6-2.6) mg/dL Total Bilirubin 0.3 (0.0-1.0) mg/dL Direct Bilirubin 0.1 (0.0-0.5) mg/dL AST 18 (5-31) U/L ALT 15 (0-31) U/L Alkaline Phosphatase 80 (39-117) U/L Total Protein 7.8 (6.5-8.0) g/dL Albumin 4.6 (3.5-5.0) g/dL Beta HCG, Quant < 2 mIU/mL Urine Color Yellow Urine Appearance Clear Urine pH 6.5 (5.0-9.0) Ur Specific [place] 1.020 (1.005-1.025) Urine Protein Negative (Neg-Trace) mg/dL Urine Glucose (UA) Negative (Negative) mg/dL Urine Ketones Negative (Negative) mg/dL Urine Blood Negative (Negative) Urine Nitrite Negative (Negative) Ur Leukocyte Esterase Negative (Negative) Tests considered The following testing was considered but not selected: Considered pelvic ultrasound but ultimately feel that this is not indicated as the patient has no signs or symptoms to suggest tubo-ovarian abscess or ovarian torsion. She will follow up with outpatient providers Discharge Plan Discharge Clinical Impression: Pelvic pain Patient Disposition: Home, Self-Care Instructions: Pelvic Pain (ED) Additional Instructions: Your workup in the ER today was reassuring. I do not believe that you have an infection causing the lumps. They do not seem consistent with lymph nodes pain I suspect that what you are feeling is scar tissue related to your recent surgery You may follow up with general surgery, return for new or worsening symptoms Prescriptions: No Action sumatriptan succinate 50 mg tablet See Rx Instructions PO .COMPLEX 30 Days Qty: 12 3RF Rx Instructions: take 1 tab at onset of headache; if no relief may repeat 1 tab after at least 2 hrs; max = 4 tabs/24 hr PO Referrals: [facility] General Surgeons [Provider Group, General Surgery] Referral Note: lower abdominal pain recent panniculectomy in August Stand Alone Forms: Work/School Release Interventions: ED Discharge Assessment Last Done: 05/20/25 22:04 Discharge Date/Time: 05/20/25 22:06 Print Language: Hebrew
[2025-05-20 16:35] LABS: MANUAL DIFF FLAG NO
[2025-05-20 16:41] LABS: Hematocrit 38.1 % (37.0-47.0); Hemoglobin 12.6 g/dl (12.0-16.0); Imm Gran Abs Auto 0.04 X10*3/uL (0.00-0.03); Imm Gran Pct Auto 0.4 % (0.0-0.4); Lymphocytes Absolute Auto 1.9 X10*3/uL (1.2-4.9); Mean Corpuscular HGB Conc 33.1 g/dl (31.0-35.0); Mean Corpuscular Hemoglobin 29.3 pg (27.0-33.0); Mean Corpuscular Volume 88.6 fL (80.0-98.0); NRBC Abs Auto 0.000 X10*3/uL (0.0-0.012); NRBC Pct Auto 0.0 /100WBC (0.0-0.2); Platelet Count 247 X10*3/uL (160-400); Red Blood Count 4.30 X10*6/uL (4.20-5.50); White Blood Count 9.7 X10*3/uL (4.8-10.8)
[2025-05-20 16:56] LABS: Alanine Aminotransferase 15 U/L (0-31); Albumin Level 4.6 g/dL (3.5-5.0); Alkaline Phosphatase 80 U/L (39-117); Anion Gap 10 (12-20); Aspartate Amino Transferase 18 U/L (5-31); Blood Urea Nitrogen 10 mg/dL (9-16); Calcium 9.2 mg/dL (8.4-10.2); Carbon Dioxide 26 mmol/L (22-29); Chloride 106 mmol/L (96-108); Creatinine Clr Calc Pharmacy 124.9; Estimated Glomerular Filt Rate > 60; Magnesium 1.9 mg/dL (1.6-2.6); Potassium 3.9 mmol/L (3.3-5.1); Sodium 138 mmol/L (135-145); Total Protein 7.8 g/dL (6.5-8.0)
--- NOTE | 2025-05-20 20:36 | PC.NURSE ---
PT provided vaginal swab and urine cup. PT currently in bathroom obatining samples.
[2025-05-20 21:37] LABS: Glucose Urine UA Negative (Negative); PH 6.5 (5.0-9.0); Specific Gravity - Urine 1.020 (1.005-1.025)
[2025-05-20 21:40] LABS: Appearance Urine Clear
[2025-05-20 22:04] VITALS: BP 130/60; PULSE 86; RESP 16; TEMP 36.6; O2SAT 99
[2025-05-21 01:03] LABS: CT PCR NOT DETECTED (Not Detect.); NG PCR NOT DETECTED (Not Detect.)
== END 2025-05-20 22:06 | disposition home or self-care (01) ==
PROVIDERS: Physician Assistant Medical; Emergency Provider Emergency Medicine Emergency Medical Services
DX: R10.23 Pelvic and perineal pain bilateral (principal)
CPT/HCPCS: 36415; 80048; 80076; 81003; 83735; 84702; 85025; 87491; 87591; 99282; 99283